=== PATIENT | male | born 1985 | race Hispanic/Latino ===

== ENCOUNTER 2018-11-17 06:26 | Inpatient (IN) | payer MEDICARE ==
[2018-10-09 06:40] VITALS: BMI 32.7
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
[2018-11-17] MEDS ORDERED: Bacitracin Ointment 30 GM TUBE ONE (12:54)
[2018-11-17] MEDS ORDERED: Absorbable Gelatin Sponge Size 12-7 ONE (12:54)
[2018-11-17] MEDS ORDERED: Thrombin Topical 5,000 Int Units Spray Kit ONE (12:55)
[2018-11-17] MEDS ORDERED: Calcium Chloride 1000 mg/10 ml Syringe ONE (12:56)
[2018-11-17] MEDS ORDERED: Lidocaine 4% (Laryng-O-Jet) Kit MM ONE (13:12)
[2018-11-17] MEDS ORDERED: Propofol 10 mg/ml Inj (20 ML) ONE (13:12)
[2018-11-17] MEDS ORDERED: Lactated Ringer's 1,000 ML IV ONE ×2 (13:18→16:00)
[2018-11-17] MEDS ORDERED: Sodium Chloride 0.9% 1,000 ML IV ONE (13:30)
[2018-11-17] MEDS ORDERED: EPINEPHrine 1 mg/ml (1:1000) Inj ONE ×3 (13:42→16:45)
[2018-11-17] MEDS ORDERED: Midazolam 2 MG/2 ML VIAL ONE (13:50)
[2018-11-17] MEDS ORDERED: Morphine 1 mg/ml preservative-free Inj(Duramorph) ONE (13:51)
[2018-11-17] MEDS ORDERED: Rocuronium 10 mg/ml (5 ml) ONE ×2 (13:52→17:05)
[2018-11-17] MEDS ORDERED: Thrombin Topical 5,000 Int Units Spray Kit TOP ONE ×2 (14:17→15:00)
[2018-11-17] MEDS ORDERED: ePHEDrine 50 mg/ml Inj ONE (14:19)
[2018-11-17] MEDS ORDERED: Calcium Chloride 1000 mg/10 ml Syringe IV ONE (15:00)
[2018-11-17] MEDS ORDERED: EPINEPHrine 1 mg/ml (1:1000) Inj IV ONE ×2 (15:00)
[2018-11-17] MEDS ORDERED: Bisacodyl 5mg EC Tab PO PRN (15:04)
[2018-11-17] MEDS ORDERED: HYDROmorphone 0.5 mg/0.5 ml ISec IVP PRN ×2 (15:04→19:55)
[2018-11-17] MEDS ORDERED: oxyCODONE 5 mg Immediate Release Tab PO PRN (15:10)
[2018-11-17 16:12] LABS: FLUID TYPE SYNOVIAL FLUID
[2018-11-17] MEDS ORDERED: Sevoflurane - Inhalation Anesthetic Liq (250 ml) ONE (16:57)
[2018-11-17] MEDS ORDERED: Ropivacaine 0.5% 30ML IV ONE (16:58)
[2018-11-17] MEDS ORDERED: Bupivacaine 0.5% Inj(30mL) ONE (16:59)
[2018-11-17] MEDS ORDERED: Neostigmine 1:1000 (1 mg/ml) Inj ONE (17:55)
[2018-11-17 18:39] LABS: SF GROSS APPEARANCE BLOODY (CLEAR)
[2018-11-17 18:40] LABS: SYNOVIAL FLUID COMMENT BLOODY
[2018-11-17 18:42] LABS: SYNOVIAL FLUID MONO/MACROPHAGE 28 % (0-0)
[2018-11-17] MEDS ORDERED: HYDROmorphone 0.5 mg/0.5 ml ISec ONE (19:10)
--- NOTE | 2018-11-17 19:11 | PCM.SURG1 ---
Surgeon's Initial Post Op Note - Surgeon's Notes Surgeon: Alysa Laborer Hoisting: JOSEPHINE Menezes/ 2nd assist BEHZAD Antoine Type of Anesthesia: General Endo Anesthesia Administered By: Mayank Hernandez Pre-Operative Diagnosis: Atrophic/chroinc non-union distal femoral fracture Operative Findings: as above. massive scar tissue. loose/brokenm orthopedic hardware Post-Operative Diagnosis: as above Operation Performed: ORIF comple atrophic nonunion distal femoral fracture. iliac crest bone graft harvest ( BMP- aspirate from iliac crest). Excision nonunio. removal; hardware deep. autograft/alloghraft bone graft. application alayna cam dressing and knee immobilizer Specimen/Specimens Removed: bone/hardware/ metallosis/granulation tissue Estimated Blood Loss: EBL {In ML}: 105 Drains Used: Hemovac Post-Op Condition: Fair Date of Surgery/Procedure: 11/17/18 Time of Surgery/Procedure: 15:15 (time in room 1405)
--- NOTE | 2018-11-17 19:11 | PCM.ANESB3 ---
Femoral Nerve Block - Femoral Nerve Block Date of Procedure: 11/17/18 Anesthesiologist: Keith Pre-Procedure Diagnosis: Left femoral fracture Post-Procedure Diagnosis: Same Procedure Performed: Femoral Nerve Block Left - Procedure Femoral Nerve Block: The procedure was explained to the patient that it is for the post-operative pain management. Consent was obtained after a thorough discussion with the patient regarding the benefits and possible complications of local anesthetic block of the femoral nerve at the inguinal crease area. The patient was brought to the operating room and standard monitors were applied. Time-out was held with the circulating nurse to confirm the correct surgery and the appropriate block. After surgery was completed and pateint was extubated and in supine position with fully extended lower extremities and the ___left groin exposed. The femoral artery was then carefully palpated. The ultrasound transducer was then applied to this area in the transverse plane and the femoral nerve was visualized lateral to the femoral artery and underneath the fascia iliaca. After thorough identification, the inguinal crease area was prepped with Betadine solution three times and 1 % Lidocaine was injected subcutaneously for topical anesthesia. At this point, a #22 gauge Stimuplex 2-inch needle was inserted immediately late ral to the femoral artery pulse at the inguinal crease and advanced perpendicularly. The needle was inserted to the ultrasound transducer in-plane towards the femoral nerve in a [id number] direction. Needle advancement was performed carefully under direct ultrasound visualization. Nerve stimulator was used and twitch of the quadriceps muscle was obtained at current of __0.4___MA. After negative aspiration, __20___cc of __.5___% ___Bupivacaine was injected and this was followed with __5____ cc of ___.5____ % ____Ropivacaine . Under ultrasound guidance the local anesthetics were observed spreading below fascia iliaca and around the femoral nerve. The needle was removed intact and re-directed to the superio-lateral aspect of the sartorius muscle, 5mL of .5% Ropivacaine was then injected into the area. The needle was then removed and sterile dressing was applied. The patient had stable vital signs, was conscious and in no apparent distress. The patient tolerated the femoral nerve block well with stable vital signs and was then transferred to PACU.
[2018-11-17] MEDS: HYDROmorphone 0.5 mg/0.5 ml ISec IVP PRN ×5 (19:20→20:00)
[2018-11-17] MEDS: Sodium Chloride 0.9% 1,000 ML IV SCH ×2 (19:38→20:25)
[2018-11-17] MEDS: ceFAZolin 2 GM in Sodium Chloride 0.9% 100 ML IVPB SCH (22:28)
[2018-11-18] MEDS: Sodium Chloride 0.9% 1,000 ML IV SCH (06:12)
[2018-11-18] MEDS: ceFAZolin 2 GM in Sodium Chloride 0.9% 100 ML IVPB SCH (06:13)
[2018-11-18 06:50] LABS: HEMOGLOBIN 13.2 g/dL (12.0-18.0); MEAN CELL VOLUME 92.2 fl (80.0-94.0); MEAN CORPUSCULAR HEMOGLOBIN 31.5 pg (27.0-31.0); MEAN CORPUSCULAR HGB CONC 34.1 g/dL (33.0-37.0); RBC 4.18 Mil/uL (4.40-5.90); RED CELL DISTRIBUTION WIDTH 12.4 % (11.5-14.5); WHITE BLOOD COUNT 13.1 K/uL (4.8-10.8)
[2018-11-18 07:08] LABS: BLOOD UREA NITROGEN 9 mg/dl (9-20); CALCIUM 8.7 mg/dL (8.4-10.2); GFR NON-AFRICAN AMERICAN > 60
--- NOTE | 2018-11-18 07:21 | CP.PCM.PN ---
Objective - Vital Signs/Intake and Output Vital Signs (last 24 hours): Temp Pulse Resp BP Pulse Ox 98.3 F 86 18 121/76 95 11/18/18 04:00 11/18/18 04:00 11/18/18 04:00 11/18/18 04:00 11/18/18 04:00 Intake and Output: 11/18/18 11/18/18 06:59 18:59 Intake Total 250 Output Total 400 Balance -150 - Medications Medications: Current Medications Acetaminophen (Tylenol 325mg Tab) 650 mg PO Q6 [facility] Last Admin: 11/18/18 04:00 Dose: Not Given Bisacodyl (Dulcolax) 10 mg PO HS PRN PRN Reason: Constipation Docusate Sodium (Colace) 100 mg PO BID [facility] Enoxaparin Sodium (Lovenox) 40 mg SC Q24H [facility]; Protocol Hydromorphone HCl (Dilaudid) 0.5 mg IVP Q4 PRN PRN Reason: Pain, severe (8-10) Hydromorphone HCl (Dilaudid 0.2 Mg/Ml Leno [facility]er) 0 mg IV PRN PRN; Protocol PRN Reason: Pain, severe (8-10) Last Admin: 11/17/18 20:20 Dose: 6 mg Sodium Chloride (Sodium Chloride 0.9%) 1,000 mls @ 100 mls/hr IV .Q10H [facility] Stop: 11/18/18 11:14 Last Admin: 11/18/18 06:12 Dose: 100 mls/hr Ondansetron HCl (Zofran Inj) 4 mg IVP Q6 PRN PRN Reason: Nausea/Vomiting Oxycodone HCl (Oxycodone Immediate Release Tab) 5 mg PO Q4 PRN PRN Reason: Pain, moderate (4-7) - Labs Labs: 11/18/18 05:15 11/18/18 05:15
--- NOTE | 2018-11-18 08:50 | CP.PCM.PN ---
Subjective - Date & Time of Evaluation Date of Evaluation: 11/18/18 Time of Evaluation: 08:00 - Subjective Subjective: Patient seen and examined at bedside comfortable. Pain is well controlled on FOREIGN DIPLOMAT. Denies any CP/SOB/dizziness/fever. NO other complaints. Objective - Vital Signs/Intake and Output Vital Signs (last 24 hours): Temp Pulse Resp BP Pulse Ox 98.1 F 84 20 111/72 96 11/18/18 08:22 11/18/18 08:22 11/18/18 08:22 11/18/18 08:22 11/18/18 08:22 Intake and Output: 11/18/18 11/18/18 06:59 18:59 Intake Total 250 Output Total 400 Balance -150 - Medications Medications: Current Medications Acetaminophen (Tylenol 325mg Tab) 650 mg PO Q6 [facility] Last Admin: 11/18/18 04:00 Dose: Not Given Bisacodyl (Dulcolax) 10 mg PO HS PRN PRN Reason: Constipation Docusate Sodium (Colace) 100 mg PO BID EFRAIN Enoxaparin Sodium (Lovenox) 40 mg SC Q24H [facility]; Protocol Hydromorphone HCl (Dilaudid) 0.5 mg IVP Q4 PRN PRN Reason: Pain, severe (8-10) Hydromorphone HCl (Dilaudid 0.2 Mg/Ml [employer]) 0 mg IV PRN PRN; Protocol PRN Reason: Pain, severe (8-10) Last Admin: 11/17/18 20:20 Dose: 6 mg Sodium Chloride (Sodium Chloride 0.9%) 1,000 mls @ 100 mls/hr IV .Q10H [facility] Stop: 11/18/18 11:14 Last Admin: 11/18/18 06:12 Dose: 100 mls/hr Ondansetron HCl (Zofran Inj) 4 mg IVP Q6 PRN PRN Reason: Nausea/Vomiting Oxycodone HCl (Oxycodone Immediate Release Tab) 5 mg PO Q4 PRN PRN Reason: Pain, moderate (4-7) - Labs Labs: 11/18/18 05:15 11/18/18 05:15 - Extremities Exam Additional comments: LLE: Knee imm intact Dressings CDI Hemovac drain intact with scant bloody drainage sensation intact SP/DP/TN motor intact EHL/FHL/TA/G pedal pulse intact calves soft NT b/l Assessment and Plan (1) 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 Watt who agrees with above Status: Acute
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
--- NOTE | 2018-11-18 13:55 | RAD ---
Date of service: 11/17/2018 PROCEDURE: LEFT FEMUR RADIOGRAPHS HISTORY: s/p L femur hardware removal and ORIF COMPARISON: None available. TECHNIQUE: Two frontal views of the left femur been submitted postoperatively. FINDINGS: Patient status post open reduction internal fixation distal diametaphyseal fracture with a lengthy compression plate identified laterally chest x-ray numerous compression screws. One screw is independent and appears intact. A 2nd screw independent of the prosthesis has fractured postoperative soft tissue change are identified with 2 surgical drains identified in situ laterally. Numerous skin dilia are seen laterally along the left thigh and left knee skin. IMPRESSION: Status post ORIF distal left femoral fracture limited postoperative changes identified as per above.
[2018-11-18 14:14] VITALS: O2SAT 97
[2018-11-18 16:18] VITALS: BP 121/81; PULSE 97; RESP 20; TEMP 98.1
[2018-11-18] MEDS ORDERED: Enoxaparin 40 mg Syringe SC SCH (17:00)
--- NOTE | 2018-11-19 13:51 | RAD ---
Date of service: 11/17/2018 PROCEDURE: Greater than 1 hour for fluoroscopy HISTORY: LEFT FEMUR COMPARISON: None TECHNIQUE: Submitted images from the current procedure: 4.0 FINDINGS: Total exam DLP: 0.90 (mGy). IMPRESSION: Total fluoroscopic time (continuous mode) utilized during the procedure 12.1 seconds.
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
== END 2018-11-18 16:30 | disposition home or self-care (01) | DRG 481 ==
LOC: H.OPSURG 06:26 → H.MEDSURG1 15:04
PROVIDERS: ADMIT Internal Medicine; ATTEND Internal Medicine
PROC: 0QPC04Z Removal of Internal Fixation Device from Left Lower Femur, Open Approach (ICD-10-PCS; 2018-11-17)
PROC: 0MQP0ZZ Repair Left Knee Bursa and Ligament, Open Approach (ICD-10-PCS; 2018-11-17)
PROC: 0QUC07Z Supplement Left Lower Femur with Autologous Tissue Substitute, Open Approach (ICD-10-PCS; 2018-11-17)
PROC: 3E0V0GB Introduction of Recombinant Bone Morphogenetic Protein into Bones, Open Approach (ICD-10-PCS; 2018-11-17)
PROC: 3E0T3BZ Introduction of Anesthetic Agent into Peripheral Nerves and Plexi, Percutaneous Approach (ICD-10-PCS; principal; 2018-11-17 10:45)
PROC: 0QSC04Z Reposition Left Lower Femur with Internal Fixation Device, Open Approach (ICD-10-PCS; 2018-11-17 10:45)
DX: S72.402K Unspecified fracture of lower end of left femur, subsequent encounter for closed fracture with nonunion (principal); T84.84XA Pain due to internal orthopedic prosthetic devices, implants and grafts, initial encounter; T84.115A Breakdown (mechanical) of internal fixation device of left femur, initial encounter; Y93.9 Activity, unspecified; Y92.9 Unspecified place or not applicable; F17.210 Nicotine dependence, cigarettes, uncomplicated; V89.2XXD Person injured in unspecified motor-vehicle accident, traffic, subsequent encounter; M89.8X6 Other specified disorders of bone, lower leg; Y83.1 Surgical operation with implant of artificial internal device as the cause of abnormal reaction of the patient, or of later complication, without mention of misadventure at the time of the procedure